=== PATIENT | male | born 1950 | race African-American/Black ===

== ENCOUNTER 2018-03-29 08:18 | Emergency (ER) | payer MEDICARE, OTHER ==
[~2018-03-29] VITALS: Ht 182.9 cm; Wt 91.0 kg
[2018-03-29] MEDS ORDERED: ONDANSETRON HCL 4MG/2ML INJ IV STA (09:05)
[2018-03-29] MEDS ORDERED: LACTATED RINGERS 1,000 ML IV STA ×2 (09:05)
[2018-03-29 09:42] LABS: HEMATOCRIT. 37.5 % (42.0-52.0); HEMOGLOBIN. 12.3 g/dL (14.0-18.0); MEAN CORPUSCULAR HEMOGLOBIN 28.1 pg (28.0-32.0); MEAN CORPUSCULAR VOLUME 85.2 fL (80.0-94.0); MEAN PLATELET VOLUME 9.6 fl (7.4-10.4); PLATELET 159 x1000/uL (130-400); RED CELL DISTRIBUTION WIDTH 14.4 % (11.6-14.6)
[2018-03-29 09:47] LABS: CHLORIDE 101 mEq/L (98-107)
[2018-03-29 09:48] LABS: PROTHROMBIN TIME 10.2 sec (9.1-11.1)
[2018-03-29 09:53] LABS: PHOSPHORUS 3.3 mg/dL (2.5-4.9)
[2018-03-29 10:20] LABS: PLATELET ESTIMATE NORMAL
[2018-03-29 10:24] LABS: CLARITY URINE CLEAR (CLEAR); COLOR URINE YELLOW (YELLOW); KETONES URINE NEGATIVE (NEGATIVE); LEUKOCYTE ESTERASE URINE NEGATIVE (NEGATIVE); NITRITE URINE NEGATIVE (NEGATIVE); OCCULT BLOOD URINE 2+ (NEGATIVE); PROTEIN URINE NEGATIVE (NEGATIVE); SPECIFIC GRAVITY URINE 1.022 (1.005-1.030); UROBILINOGEN URINE 0.2 E.U./dL (0.2-1.0)
[2018-03-29] MEDS ORDERED: MAGNESIUM 2 G PREMIX 50 ML IV ONE (10:30)
[2018-03-29] MEDS ORDERED: ACETAMINOPHEN 325MG TABLET PO ONE (12:00)
[2018-03-29 12:42] VITALS: BP 164/78
== END 2018-03-29 12:48 | disposition home or self-care (01) ==
LOC: ER 08:18 → CANBEDREQ 15:30
DX: R11.10 Vomiting, unspecified (principal); R19.7 Diarrhea, unspecified; E86.0 Dehydration; F17.200 Nicotine dependence, unspecified, uncomplicated; J44.9 Chronic obstructive pulmonary disease, unspecified; E11.9 Type 2 diabetes mellitus without complications; I10 Essential (primary) hypertension
CPT/HCPCS: 36415; 71045; 80053; 81003; 83605; 83690; 83735; 84100; 84484; 85025; 85610; 93005; 96361; 96365; 96375; 99284; J2405; J3475; J7120